=== PATIENT | female | born 1965 | race Caucasian/White ===

== ENCOUNTER → 2023-02-21 | Outpatient (CLI) | payer MEDICAID, SELFPAY ==
--- NOTE | 2023-02-21 11:10 | MRI_ITS ---
EXAM: MR LUMBAR SPINE WITHOUT INTRAVENOUS CONTRAST CLINICAL INDICATION: pain TECHNIQUE: Multiplanar and multisequence MR images of the lumbar spine without intravenous contrast. Magnetic field strength 1.5 T. COMPARISON: Lumbar spine x-ray 01/09/2023. FINDINGS: VERTEBRAE: Unremarkable. Vertebral body heights are preserved. Normal vertebral bodies and posterior elements. Normal alignment. No spondylolisthesis. There is preservation of the normal lumbar lordosis. SPINAL CORD: Unremarkable. Normal position and signal intensity of the conus medullaris. SOFT TISSUES: Unremarkable. DISCS/SPINAL CANAL/NEURAL FORAMINA: T12-L1: Moderate disc space narrowing and loss of disc signal. Mild generalized disc bulge. No spinal canal or foraminal stenosis. L1-L2: Moderate disc space narrowing and loss of disc signal. Mild generalized disc bulge. No spinal canal or foraminal stenosis. L2-L3: Unremarkable. Normal disc height and morphology. Normal spinal canal and lateral recesses. Normal neuroforamina. L3-L4: Unremarkable. Normal disc height and morphology. Normal spinal canal and lateral recesses. Normal neuroforamina. Mild bilateral facet arthropathy. L4-L5: Unremarkable. Normal disc height and morphology. Normal spinal canal and lateral recesses. Normal neuroforamina. Moderate bilateral facet arthropathy. L5-S1: Disc space narrowing and loss of disc signal. 8 mm anterior subluxation of L5 on S1. No spinal canal, foraminal, or lateral recess stenosis. Moderate bilateral facet arthropathy. MRI/Spine Lumbar (Routine) IMPRESSION: 1. Anterior subluxation of L5 on S1 measuring 8 mm with moderate spondylosis. No spinal canal or foraminal stenosis. Moderate bilateral facet arthropathy. 2. T12-L1 moderate spondylosis and mild generalized disc bulge. No spinal canal or foraminal stenosis. 3. L1-L2 moderate spondylosis and mild generalized disc bulge. No spinal canal or foraminal stenosis. Electronically Signed: David Medel MD at 18:11 EST ,
== END | disposition home or self-care (01) ==
LOC: MRI 11:07
PROVIDERS: PCP Nurse Practitioner Family; Referring Provider Orthopaedic Surgery; Visit Provider Orthopaedic Surgery
DX: M43.18 Spondylolisthesis, sacral and sacrococcygeal region (principal)
CPT/HCPCS: 72148

== ENCOUNTER 2023-02-24 12:00 | Outpatient (RCR) | payer MEDICAID, SELFPAY | END 2023-02-27 23:59 | LOC: NS 12:00 | PROVIDERS: PCP Nurse Practitioner Family; Referring Provider Orthopaedic Surgery; Visit Provider Orthopaedic Surgery | DX: Z71.3 Dietary counseling and surveillance (principal); E66.01 Morbid (severe) obesity due to excess calories; Z68.41 Body mass index [BMI] 40.0-44.9, adult | CPT/HCPCS: 97802; 97803 ==